=== PATIENT | female | born 1960 | race Caucasian/White ===

== ENCOUNTER 2019-03-19 15:28 | Emergency (ER) | payer OTHER ==
[2019-03-19 15:44] VITALS: BP 125/88
--- NOTE | 2019-03-19 16:07 | ER Document Report ---
HPI - HPI Time Seen by Provider: 03/19/19 16:04 Pain Level: 5 Notes: Patient is a 58-year-old female with a history of tachycardia (under care of cardiology with baseline of 110-120) who presents complaining of a gold ring stuck on her left ring finger for 2 weeks. Patient states that she has tried to get off unsuccessfully. She has noticed some redness and swelling distal to the site of the ring. Denies drug allergies. She is still able move her finger without difficultly otherwise. No numbness or tingling associated. Denies any headache, fever, URI, sore throat, chest pain, palpitations, syncope, cough, shortness of breath, wheeze, dyspnea, abdominal pain, nausea/vomiting/diarrhea, urinary retention, dysuria, hematuria, muscle paralysis/weakness, or rash. - ROS Systems Reviewed and Negative: Yes All other systems reviewed and negative Past Medical History - Social History Smoking Status: Unknown if Ever Smoked Family History: Reviewed & Not Pertinent Vertical Provider Document - CONSTITUTIONAL Agree With Documented VS: No - HR 116 Notes: PHYSICAL EXAMINATION: GENERAL: Well-appearing, well-nourished and in no acute distress. HEAD: Atraumatic, normocephalic. NECK: Normal range of motion, supple without lymphadenopathy. No midline tenderness. LUNGS: Breath sounds clear to auscultation bilaterally and equal. No wheezes rales or rhonchi. HEART: Regular rate and rhythm without murmurs, rubs, gallops. Musculoskeletal: Rt hand: there is mild swelling and erythema noted to the posterior ring finger just distal to the ring itself. The ring does appear stuck because of the noted swelling. No fluctuance or purulence noted. No ecchymosis or deformity. N/V intact distal. FROM to passive/active at the fingers. 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 No scaphoid tenderness. No other bony tenderness. Extremities: No cyanosis, clubbing, or edema b/l. Peripheral pulses 2+. Capillary refill less than 3 seconds. NEUROLOGICAL: Normal speech, normal gait. Normal sensory, motor exams otherwise unremarkable PSYCH: Normal mood, normal affect. SKIN: see above. No rash - INFECTION CONTROL TRAVEL OUTSIDE OF THE [place] IN LAST 30 DAYS: No Course - Re-evaluation Re-evalutation: 03/19/19 16:14 Patient is an afebrile, well-hydrated, 58-year-old female who presents to the ED with left fourth finger pain secondary to a stuck ring with mild cellulitis associated, no abscess or streaks/purulence. Vitals are acceptable without any significant tachycardia, tachypnea, or hypoxia. PE is otherwise unremarkable for any neurovascular compromise, obvious tendon/ligament rupture, obvious fracture/dislocation, septic joint. Patient is nontoxic-appearing. Ring removed successfully without any complications. No other labs or imaging warranted at this time based on H&P. I will send him a prescription for Bactrim. Conservative measures otherwise for symptoms. Recheck with your PCM in 3-5 days. Consider consult orthopedics. Return to the ED with any worsening/concerning symptoms otherwise as reviewed in discharge. Patient is in agreement. - Vital Signs Vital signs: Temp Pulse Resp BP Pulse Ox 99.1 F 116 H 20 125/88 H 97 03/19/19 15:40 03/19/19 16:00 03/19/19 15:40 03/19/19 15:40 03/19/19 15:40 Discharge - Discharge Clinical Impression: Finger pain, left Condition: Stable Disposition: HOME, SELF-CARE Additional Instructions: Keep the skin clean Wash with soap and water Tylenol/ibuprofen if needed Triple antibiotic ointment daily Take medication as directed Monitor for any worsening symptoms Recheck with your PCM in 3-5 days Return to the ED with any worsening symptoms and/or development of fever, headache, chest pain, palpitations, syncope, shortness of breath, trouble breathing, abdominal pain, n/v/d, abscess, purulent discharge, red streaks, worsening swelling, or other worsening symptoms that are concerning to you. Prescriptions: Cephalexin Monohydrate [Keflex 500 mg Capsule] 500 mg PO TID #30 capsule Forms: Elevated Blood Pressure Referrals: [facility] ([facility]) [Provider Group] - Follow up as needed
== END 2019-03-19 16:40 | disposition home or self-care (01) ==
LOC: ER 15:28
DX: S60.445A External constriction of left ring finger, initial encounter (principal); W49.04XA Ring or other jewelry causing external constriction, initial encounter; R00.0 Tachycardia, unspecified
CPT/HCPCS: 99283

== ENCOUNTER 2019-08-11 17:27 | Emergency (ER) | payer MEDICAID, OTHER ==
[2019-08-11] MEDS ORDERED: NORMAL SALINE 1000 ML 1,000 ML IV ONE (18:07)
[2019-08-11 18:27] LABS: ABSOLUTE EOSINOPHILS # (AUTO) 0.5 10^3/uL (0.0-0.6); ABSOLUTE LYMPHOCYTES (AUTO) 2.3 10^3/uL (0.5-4.7); ABSOLUTE MONOCYTES (AUTO) 0.4 10^3/uL (0.1-1.4); ABSOLUTE NEUT (AUTO) 4.4 10^3/uL (1.7-8.2); BASOPHILS % (AUTO) 0.4 % (0-2); EOSINOPHILS % (AUTO) 6.8 % (0-6); HEMATOCRIT 37.6 % (36.0-47.0); LYMPHOCYTES % (AUTO) 29.8 % (13-45); MEAN CORPUSCULAR HEMOGLOBIN 30.9 pg (27.0-33.4); MEAN CORPUSCULAR HGB CONC 34.6 g/dL (32.0-36.0); MEAN CORPUSCULAR VOLUME 90 fl (80-97); MONOCYTES % (AUTO) 4.9 % (3-13); PLATELET COUNT 412 10^3/uL (150-450); RED BLOOD COUNT 4.21 10^6/uL (3.72-5.28); RED CELL DISTRIBUTION WIDTH 13.5 % (11.5-14.0); SEGMENTED NEUTROPHILS % (AUTO) 58.1 % (42-78); TOTAL CELLS COUNTED % (AUTO) 100 %; WHITE BLOOD COUNT 7.6 10^3/uL (4.0-10.5)
[2019-08-11 18:41] LABS: ALBUMIN 3.6 g/dL (3.5-5.0); ALKALINE PHOSPHATASE 60 U/L (38-126); ANION GAP 8 (5-19); ASPARTATE AMINO TRANSFERASE 24 U/L (14-36); BILIRUBIN,DIRECT 0.1 mg/dL (0.0-0.4); BILIRUBIN,TOTAL 0.4 mg/dL (0.2-1.3); BLOOD UREA NITROGEN 14 mg/dL (7-20); CALCIUM 8.9 mg/dL (8.4-10.2); CARBON DIOXIDE 33 mmol/L (22-30); CHLORIDE 96 mmol/L (98-107); GLUCOSE 140 mg/dL (75-110); POTASSIUM 3.5 mmol/L (3.6-5.0); TOTAL PROTEIN 6.3 g/dL (6.3-8.2)
[2019-08-11] MEDS ORDERED: CEFTRIAXONE 1 GM/D5W RTU 1 GM/50 ML RTUPB IV ONE (18:50)
[2019-08-11] MEDS ORDERED: KETOROLAC TROMETHAMINE INJ/PF 30 MG/1 ML SDV IV ONE (18:51)
--- NOTE | 2019-08-11 18:52 | ER Document Report ---
ED ENT - General Chief Complaint: Ear Pain Stated Complaint: EAR PAIN/HEADACHE/DIZZY/KNEE PAIN Time Seen by Provider: 08/11/19 18:08 Primary Care Provider: SHORTY PANTOJA MD [Primary Care Provider] - Follow up as needed Mode of Arrival: Ambulatory Information source: Patient Notes: This 59-year-old woman presents to the emergency department with a complaint of right ear pain. States that her ear began bothering her approximately 3 weeks ago. Symptoms intensified over the past week and she went to an outpatient clinic where she was given amoxicillin and told to take ibuprofen. Pain has continued and she states that she is no better after taking the medications as prescribed. She denies fever, nausea vomiting or associated dizziness. Patient was noted to have a low blood pressure in triage and an IV of normal saline was begun. Patient states that she runs a low blood pressure normally. TRAVEL OUTSIDE OF THE [place] IN LAST 30 DAYS: No - Related Data Allergies/Adverse Reactions: No Known Allergies Allergy (Verified 03/19/19 15:38) Past Medical History - General Information source: Patient - Social History Smoking Status: Unknown if Ever Smoked Family History: Reviewed & Not Pertinent Patient has suicidal ideation: No Patient has homicidal ideation: No Renal/ Medical History: Denies: Hx Peritoneal Dialysis Review of Systems - Review of Systems Notes: Constitutional: Negative for fever. HENT: + Right ear pain Eyes: Negative for visual changes. Cardiovascular: Negative for chest pain. Respiratory: Negative for shortness of breath. Gastrointestinal: Negative for abdominal pain, vomiting or diarrhea. Genitourinary: Negative for dysuria. Musculoskeletal: Negative for back pain. Skin: Negative for rash. Neurological: Negative for headaches, weakness or numbness. 10 point ROS negative except as marked above and in HPI. Physical Exam - Vital signs Vitals: Temp Pulse Resp BP Pulse Ox 97.6 F 64 20 85/64 L 97 08/11/19 17:42 08/11/19 17:42 08/11/19 17:42 08/11/19 17:42 08/11/19 17:42 - Notes Notes: PHYSICAL EXAMINATION: Physical Exam: General: Well-nourished well-developed in no acute distress HEENT: NC/AT, pupils equal round and reactive to light, MM moist,nares clear, + right TM with erythema, + air-fluid level, good landmarks, left TM mild erythema Neck: supple, no adenopathy, no masses. Lungs: clear, no wheezing, no rales no rhonchi CVS: Regular rate and rhythm no murmur gallop or rub Abdomen: Soft active nontender, no masses, no hepatosplenomegaly Ext: No edema clubbing or cyanosis. Neuro: Alert and responsive, moving all 4 extremities on command, cranial nerves intact. Skin: Intact no open lesions, no rash PSYCH: Normal mood, normal affect. Course - Re-evaluation Re-evalutation: 08/11/19 20:27 Patient was given ceftriaxone and Toradol in the emergency department. Pr escription is given for cefdinir and Toradol tablets. I have asked the patient to use a warm compress over the side of her face and ear for pain control. And she can follow-up with her primary care doctor as needed. - Vital Signs Vital signs: Temp Pulse Resp BP Pulse Ox 97.6 F 64 12 94/62 L 95 08/11/19 17:42 08/11/19 17:42 08/11/19 19:01 08/11/19 19:01 08/11/19 19:01 - Laboratory Result Diagrams: 08/11/19 18:13 08/11/19 18:13 Laboratory results interpreted by me: 08/11/19 08/11/19 18:13 18:13 Eos % (Auto) 6.8 H Sodium 136.9 L Potassium 3.5 L Chloride 96 L Carbon Dioxide 33 H Creatinine 1.47 H Est GFR ( Amer) 44 L Est GFR (MDRD) Non-Af 36 L Glucose 140 H Discharge - Discharge Clinical Impression: Right ear pain Right otitis media Qualifiers: Otitis media type: unspecified Qualified Code(s): H66.91 - Otitis media, unspecified, right ear Condition: Good Disposition: HOME, SELF-CARE Instructions: Otitis Media ([facility]) Additional Instructions: You are diagnosed with a right ear infection and pain secondary to the infection in the emergency department tonight, you were given IV antibiotics and IV medication for pain and prescriptions are given for oral antibiotics and oral medication for pain. 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 Prescriptions: Ketorolac Tromethamine [Toradol 10 mg Tablet] 10 mg PO Q6HP PRN #14 tablet PRN Reason: Cefdinir 300 mg PO BID #20 capsule Referrals: SHORTY PANTOJA MD [Primary Care Provider] - Follow up as needed MARY FOUNTAIN MD [ACTIVE STAFF] - Follow up as needed
[2019-08-11 21:08] VITALS: BP 116/60
== END 2019-08-11 21:08 | disposition home or self-care (01) ==
LOC: ER 17:27
DX: H66.91 Otitis media, unspecified, right ear (principal); H92.01 Otalgia, right ear; R51 Headache; R42 Dizziness and giddiness
CPT/HCPCS: 99283; 96361; 96375; 96365; 36415; 85025; 80053; J1885; J7030; J0696

== ENCOUNTER 2020-02-19 20:12 | Emergency (ER) | payer MEDICAID ==
[2020-02-19] MEDS ORDERED: ACETAMINOPHEN 325 MG TABLET PO ONE (20:45)
--- NOTE | 2020-02-19 20:48 | ER Document Report ---
ED Medical Screen (RME) - General Chief Complaint: Chest Tightness Stated Complaint: CHEST PAIN, HEADACHE, HIGH BLOOD PRESSURE Time Seen by Provider: 02/19/20 20:40 Primary Care Provider: SHORTY PANTOJA MD [Primary Care Provider] - Follow up as needed Mode of Arrival: Medic Information source: Patient Notes: HPI; [age]-year-old female presents emergency room complaining of chest tightness and a headache that started earlier today. States she had a new appointment to establish with a primary care physician advised in today her blood pressure in the office was elevated to 170/130. States they want to send her to the hospital at that time she refused. She was discharged home on lisinopril but she states she tripped tonight checked her blood pressure at 7 PM it was 200/112 patient states at that point she called EMS. Still complaining of a headache at 4-5. Chest tightness is 2 out of 5. Complains of nausea along with the persistent headache. Denies worse headache of her life. No sudden thunderclap. PE: Alert and oriented x3. Mild distress noted. Lungs: Clear to auscultation without rales, rhonchi, wheezes. Heart: Regular rate and rhythm without murmurs, rubs, gallops. I have greeted and performed a rapid initial assessment of this patient. A comprehensive ED assessment and evaluation of the patient, analysis of test results and completion of the medical decision making process will be conducted by additional ED providers. I have specifically instructed the patient or family members with the patient to immediately return to any nursing staff should anything change in the patient's condition or with their chief complaint. TRAVEL OUTSIDE OF THE [place] IN LAST 30 DAYS: No - Related Data Allergies/Adverse Reactions: No Known Allergies Allergy (Verified 03/19/19 15:38) Past Medical History Renal/ Medical History: Denies: Hx Peritoneal Dialysis Physical Exam - Vital signs Vitals: Temp Pulse Resp BP Pulse Ox 98.8 F 108 H 20 142/97 H 98 02/19/20 20:32 02/19/20 20:32 02/19/20 20:32 02/19/20 20:32 02/19/20 20:32 Course - Vital Signs Vital signs: Temp Pulse Resp BP Pulse Ox 98.8 F 108 H 20 142/97 H 98 02/19/20 20:32 02/19/20 20:32 02/19/20 20:32 02/19/20 20:32 02/19/20 20:32 Doctor's Discharge - Discharge Referrals: SHORTY PANTOJA MD [Primary Care Provider] - Follow up as needed
[2020-02-19 22:14] LABS: ABSOLUTE BASOPHILS # (AUTO) 0.1 10^3/uL (0.0-0.2); ABSOLUTE EOSINOPHILS # (AUTO) 0.4 10^3/uL (0.0-0.6); ABSOLUTE LYMPHOCYTES (AUTO) 4.4 10^3/uL (0.5-4.7); ABSOLUTE MONOCYTES (AUTO) 0.6 10^3/uL (0.1-1.4); ABSOLUTE NEUT (AUTO) 4.2 10^3/uL (1.7-8.2); BASOPHILS % (AUTO) 1.5 % (0-2); EOSINOPHILS % (AUTO) 3.9 % (0-6); HEMATOCRIT 41.2 % (36.0-47.0); HEMOGLOBIN 13.6 g/dL (12.0-15.5); LYMPHOCYTES % (AUTO) 45.5 % (13-45); MEAN CORPUSCULAR HEMOGLOBIN 31.3 pg (27.0-33.4); MEAN CORPUSCULAR VOLUME 95 fl (80-97); PLATELET COUNT 441 10^3/uL (150-450); RED BLOOD COUNT 4.35 10^6/uL (3.72-5.28); RED CELL DISTRIBUTION WIDTH 13.6 % (11.5-14.0); SEGMENTED NEUTROPHILS % (AUTO) 43.1 % (42-78); TOTAL CELLS COUNTED % (AUTO) 100 %; WHITE BLOOD COUNT 9.8 10^3/uL (4.0-10.5)
[2020-02-19 22:28] LABS: ALBUMIN 4.2 g/dL (3.5-5.0); ALKALINE PHOSPHATASE 82 U/L (38-126); ANION GAP 9 (5-19); ASPARTATE AMINO TRANSFERASE 25 U/L (14-36); BILIRUBIN,DIRECT 0.1 mg/dL (0.0-0.4); BILIRUBIN,TOTAL 0.3 mg/dL (0.2-1.3); BLOOD UREA NITROGEN 14 mg/dL (7-20); CALCIUM 9.3 mg/dL (8.4-10.2); CARBON DIOXIDE 31 mmol/L (22-30); CHLORIDE 102 mmol/L (98-107); CREATINE KINASE 128 U/L (30-135); GLUCOSE 91 mg/dL (75-110); POTASSIUM 4.4 mmol/L (3.6-5.0); TOTAL PROTEIN 7.3 g/dL (6.3-8.2)
[2020-02-19 22:38] LABS: CREATINE KINASE MB 0.52 ng/mL (<4.55)
[2020-02-19 22:41] LABS: TROPONIN I < 0.012 ng/mL
[2020-02-19] MEDS ORDERED: DIPHENHYDRAMINE HCL 50 MG/ML VIAL IV ONE (23:55)
[2020-02-19] MEDS ORDERED: PROCHLORPERAZINE EDISYLATE INJ 10 MG/2 ML VIAL IV ONE (23:55)
--- NOTE | 2020-02-20 00:34 | RADIOLOGY REPORT (SQ) ---
CLINICAL HISTORY: headache COMPARISON: None. TECHNIQUE: CT HEAD WITHOUT IV CONTRAST on 02/19/2020 11:55 PM CDT This exam was performed according to our departmental dose-optimization program, which includes automated exposure control, adjustment of the mA and/or kV according to patient size and/or use of iterative reconstruction technique. FINDINGS: There is no acute hemorrhage, mass effect or midline shift. Burris-white differentiation is preserved. There is no hydrocephalus. There is mild bifrontal cerebral atrophy. The calvarium is intact. Orbits and globes are unremarkable. The paranasal sinuses are clear. Mastoid air cells are clear. IMPRESSION: No acute intracranial findings.
[2020-02-20] MEDS ORDERED: KETOROLAC TROMETHAMINE INJ/PF 30 MG/1 ML SDV IV ONE (00:55)
[2020-02-20] MEDS ORDERED: NORMAL SALINE 500 ML IV ONE (00:58)
--- NOTE | 2020-02-20 00:59 | ER Document Report ---
ED General - General Chief Complaint: Chest Tightness Stated Complaint: CHEST PAIN, HEADACHE, HIGH BLOOD PRESSURE Time Seen by Provider: 02/19/20 20:40 Primary Care Provider: SHORTY PANTOJA MD [ACTIVE STAFF] - Follow up in 3-5 days Mode of Arrival: Medic Notes: Patient is a 59-year-old female who comes in complaining of a headache, neck pain, upper chest pain that is worse with movement. Denies fever, cough, congestion. No trauma. No anticoagulation. Patient apparently started on frederic nopril today for high blood pressure which she does not think is in any way related to the headache that she is having tonight. States that she has had headaches had similar areas before but worse tonight. Received Tylenol at triage without much relief. No previous imaging of her head. TRAVEL OUTSIDE OF THE [place] IN LAST 30 DAYS: No - HPI Onset: This afternoon Onset/Duration: Gradual Quality of pain: Dull Severity: Moderate Pain Level: 3 Associated symptoms: None - Related Data Allergies/Adverse Reactions: No Known Allergies Allergy (Verified 03/19/19 15:38) Past Medical History - General Information source: Patient - Social History Smoking Status: Never Smoker Family History: Reviewed & Not Pertinent Patient has homicidal ideation: No Renal/ Medical History: Denies: Hx Peritoneal Dialysis Review of Systems - Review of Systems Constitutional: No symptoms reported EENT: See HPI Cardiovascular: See HPI Respiratory: No symptoms reported Gastrointestinal: No symptoms reported Genitourinary: No symptoms reported Female Genitourinary: No symptoms reported Musculoskeletal: No symptoms reported Skin: No symptoms reported Hematologic/Lymphatic: No symptoms reported Neurological/Psychological: No symptoms reported Physical Exam - Vital signs Vitals: Temp Pulse Resp BP Pulse Ox 98.8 F 108 H 20 142/97 H 98 02/19/20 20:32 02/19/20 20:32 02/19/20 20:32 02/19/20 20:32 02/19/20 20:32 Interpretation: Hypertensive, Tachycardic - General General appearance: Appears well, Alert In distress: None - Appears uncomfortable - HEENT Head: Normocephalic, Atraumatic Eyes: Normal Pupils: PERRL - Respiratory Respiratory status: No respiratory distress Chest status: Tender - Bilateral upper chest wall, reproducible Breath sounds: Normal Chest palpation: Normal - Cardiovascular Rhythm: Regular Heart sounds: Normal auscultation Murmur: No - Abdominal Inspection: Normal Distension: No distension Bowel sounds: Normal Tenderness: Nontender Organomegaly: No organomegaly - Back Back: Normal, Nontender - Extremities General upper extremity: Normal inspection, Nontender, Normal color, Normal ROM, Normal temperature General lower extremity: Normal inspection, Nontender, Normal color, Normal ROM, Normal temperature, Normal weight bearing. No: [place]'s sign - Neurological Neuro grossly intact: Yes Cognition: Normal Orientation: AAOx4 Ary Coma Scale Eye Opening: Spontaneous Austin Coma Scale Verbal: Oriented [place] Coma Scale Motor: Obeys Commands Austin Coma Scale Total: 15 Speech: Normal Motor strength normal: LUE, RUE, LLE, RLE Sensory: Normal - Psychological Associated symptoms: Normal affect, Normal mood - Skin Skin Temperature: Warm Skin Moisture: Dry Skin Color: Normal Course - Re-evaluation Re-evalutation: 02/20/20 00:58 No acute findings on CT head. Patient has received Benadryl and Compazine with minimal relief in her headache. Toradol and fluids ordered. EKG and chest x- ray benign. Troponin negative x2. 02/20/20 02:00 Patient feeling better but still with some headache and nausea. Toradol and Zofran ordered. 02/20/20 02:44 Feels better, ready to go home. Taking po. Follow-up with PMD. Return if any worsening or concerning symptoms. Understands and agrees with plan. Stable for discharge. - Vital Signs Vital signs: Temp Pulse Resp BP Pulse Ox 98.8 F 108 H 14 161/96 H 98 02/19/20 20:32 02/19/20 20:32 02/20/20 02:48 02/20/20 02:01 02/20/20 02:48 - Laboratory Result Diagrams: 02/19/20 21:25 02/19/20 21:25 Laboratory results interpreted by me: 02/19/20 02/19/20 21:25 21:25 Lymph % (Auto) 45.5 H Carbon Dioxide 31 H - Diagnostic Test Radiology reviewed: Reports reviewed - EKG Interpretation by Me EKG shows normal: Sinus rhythm Rate: Tachycardia Additional EKG results interpreted by me: No acute ST changes Discharge - Discharge Clinical Impression: Atypical chest pain Headache Qualifiers: Headache type: unspecified Headache chronicity pattern: acute headache Intractability: not intractable Qualified Code(s): R51 - Headache Condition: Stable Disposition: HOME, SELF-CARE Instructions: Chest Pain of Unclear Cause ([facility]), Headache ([facility]) Prescriptions: Ondansetron [Zofran Odt 4 mg Tablet] 1 tab PO Q6HP PRN #15 tab.rapdis PRN Reason: For Nausea/Vomiting Referrals: SHORTY PANTOJA MD [ACTIVE STAFF] - Follow up in 3-5 days
[2020-02-20] MEDS ORDERED: DIAZEPAM 2 MG TABLET PO ONE (01:47)
[2020-02-20] MEDS ORDERED: ONDANSETRON HCL INJ/PF 4 MG/2 ML SDV IV ONE (01:47)
[2020-02-20] MEDS ORDERED: ONDANSETRON ODT 4 MG TAB (6 TAB/ER DISP) PO PRN (02:44)
[2020-02-20 02:51] VITALS: BP 161/96
--- NOTE | 2020-02-20 04:38 | RADIOLOGY REPORT (SQ) ---
PA and lateral chest radiograph: 02/20/2020 3:35 AM CDT Comparison: None available Indication: 59-year old patient with chest pain. Findings: The cardiomediastinal silhouette is normal in size.No pneumothorax is seen. No acute airspace opacities are seen. No discrete pleural effusion is apparent. Impression: No acute airspace opacities are seen.
--- NOTE | 2020-02-20 08:34 | EKG REPORT ---
SEVERITY:- BORDERLINE ECG - SINUS TACHYCARDIA BORDERLINE T ABNORMALITIES, ANTERIOR LEADS : Confirmed by: Jason Osuna 20-Feb-2020 08:33:32
== END 2020-02-20 03:02 | disposition home or self-care (01) ==
LOC: ER 20:12
DX: R07.89 Other chest pain (principal); R51 Headache; R07.9 Chest pain, unspecified; M54.2 Cervicalgia; I10 Essential (primary) hypertension; Z79.899 Other long term (current) drug therapy
CPT/HCPCS: 93005; 99285; 96361; 96374; 96375; 36415; 82553; 82550; 85025; 80053; 84484; 71046; 70450; 93010; J3490 ×2; J1200; J1885; J0780; J2405; J7040

== ENCOUNTER → 2020-04-14 | Outpatient (CLI) | payer MEDICAID ==
[~2020-04-14] MED LIST: REGADENOSON INJ 0.4 MG/5 ML DISP.SYRIN IV ONE
--- NOTE | 2020-04-15 08:44 | DRAGON STRESS TEST REPORT ---
Pharmacological nuclear stress test Date: April 15, 2020 Referring physician: Performing physician: Indication: Chest pain Clinical history 59-year-old lady presented with chest pain and palpitations. We decided to proceed with pharmacological nuclear stress test. Risk factor for coronary artery disease a systemic hypertension. Procedure The patient presented to the stress lab. Initially rest images were obtained according to standard protocol after the injection of 16.39 millicurie technetium 99m sestamibi. Subsequently the patient underwent pharmacological stress utilizing 0.4 mg of regadenoson intravenously. The patient's EKG and vital signs were monitored throughout the procedure. Subsequently patient was injected with 45 millicuries of technetium 99m sestamibi. After a period of rest, stress images were obtained according to standard protocol. EKG showed sinus rhythm at beats per minute. The patient's stress EKG did not show any evidence for myocardial ischemia. There were no arrhythmias observed. Raw as well as processed rest and stress images were reviewed. There was mild to moderate gut uptake which did not interfere with the study. The rest and stress images show uniform uptake of radioactive isotope without any fixed or reversible defects to suggest myocardial ischemia or myocardial infarction. There is normal contractility post-stress. The calculated ejection fraction is 69%. The TID ratio is 1.19. Conclusion The stress EKG is negative for myocardial ischemia There is no scintigraphic evidence of myocardial infarction or ischemia provoked by pharmacological stress. There is normal contractility post-stress. The gated left ventricular ejection fraction is 69 %. The patient will be given an appointment to discuss these results. [facility]
--- NOTE | 2020-04-15 21:03 | XCELERA REPORT ---
[address] [address] Transthoracic Echocardiogram Report Name: LES COLBERT Age: 59 yrs Gender: Female : 1960 Patient Status: Outpatient Patient Location: [facility] Study Date: 04/14/2020 10:49 AM History: Palpitations Height: 63 in Weight: 228 lb BSA: 2.0 m2 Procedure: A complete two-dimensional transthoracic echocardiogram was performed (2D, M-mode, spectral and color flow Doppler). The study was technically difficult with many images being suboptimal in quality. Reason For Study: PALPITATION Previous Evaluation: No previous studies were available. History: Palpitations. Ordering Physician: LALA GUZMÁN Performed By: Fan Shepherd Interpretation Summary Left ventricular systolic function is normal. The Ejection Fraction estimate is 60-65% The right ventricular systolic function is normal. There is no mitral regurgitation noted. There is a trace amount of tricuspid regurgitation There is no pericardial effusion. MMode/2D Measurements & Calculations RVDd: 2.6 cm LVIDd: 4.9 cm FS: 37.6 % Ao root diam: 2.8 cm IVSd: 0.83 cm LVIDs: 3.1 cm EDV(Teich): 115.4 ml Ao root area: 6.1 cm2 LVPWd: 0.73 cm ESV(Teich): 37.5 ml LA dimension: 3.2 cm EF(Teich): 67.5 % Doppler Measurements & Calculations MV E max jessenia: MV P1/2t max jessenia: PA V2 max: TR max jessenia: 69.4 cm/sec 67.1 cm/sec 84.9 cm/sec 258.3 cm/sec MV A max jessenia: MV P1/2t: 101.2 msec PA max PG: TR max P.1 cm/sec MVA(P1/2t): 2.2 cm2 2.9 mmHg 26.7 mmHg MV E/A: 1.2 MV dec slope: 194.1 cm/sec2 MV dec time: 0.21 sec MV P1/2t-pr_phl: 101.2 msec Left Ventricle The left ventricle is normal in size. There is normal left ventricular wall thickness. Left ventricular systolic function is normal. The Ejection Fraction estimate is 60-65%. Doppler measurements suggest pseudonormalized left ventricular relaxation, which is associated with grade II/IV or mild to moderate diastolic dysfunction. Regional wall motion abnormalities cannot be excluded due to limited visualization. Right Ventricle The right ventricle is not well visualized secondary to technical limitations. The right ventricular systolic function is normal. Atria The right atrium is normal. The left atrial size is normal. Mitral Valve The mitral valve is grossly normal. There is no mitral valve stenosis. There is no mitral regurgitation noted. Aortic Valve The aortic valve is normal in structure and function. The aortic valve is trileaflet. The aortic valve opens well. Doppler interrogation of aortic valve inadequate. Tricuspid Valve The tricuspid valve is not well visualized, but is grossly normal. There is a trace amount of tricuspid regurgitation. Tricuspid regurgitation jet envelope not well defined to measure RV systolic pressure accurately. Pulmonic Valve The pulmonic valve is not well visualized. Great Vessels The aortic root is normal size. The inferior vena cava appeared normal and decreased > 50% with respiration (RAP 5-10 mmHg). Effusions There is no pericardial effusion. : LALA GUZMÁN Anil
== END ==
LOC: RAD 08:33
PROVIDERS: ATTEND Internal Medicine
DX: R07.9 Chest pain, unspecified (principal); R00.2 Palpitations; I25.9 Chronic ischemic heart disease, unspecified
CPT/HCPCS: 93306; 93017; 78452; A9500; J2785; Q9969

== ENCOUNTER 2020-06-06 15:32 | Emergency (ER) | payer MEDICAID ==
--- NOTE | 2020-06-06 15:50 | ER Document Report ---
ED Medical Screen (RME) - General Chief Complaint: Arm Pain Stated Complaint: ARM PAIN Time Seen by Provider: 06/06/20 15:45 Primary Care Provider: LALA GUZMÁN MD [Primary Care Provider] - Follow up as needed Mode of Arrival: Ambulatory Information source: Patient Notes: 59-year-old female presents to ED for complaint of severe pain to the right upper arm. She states she has not injured it she has not pulled anything up she has not done anything to make this into the right upper arm. She states it is hard firm and feels like it is just a constant throb in the upper arm. There is no obvious injuries to the area. She states she does have a history of melanoma 40 years ago but has not had it since then. She does not have a history of DVTs, she has not been on any long trips, she does not smoke, does not take any hormones, and she does not know any reason for this arm to hurt. She is alert oriented respirations regular nonlabored speaking in full sentences. She states that now the pain is all the way down the right arm even to her fingers. I have greeted and performed a rapid initial assessment of this patient. A comprehensive ED assessment and evaluation of the patient, analysis of test results and completion of medical decision making process will be conducted by an additional ED providers. TRAVEL OUTSIDE OF THE [place] IN LAST 30 DAYS: No - Related Data Allergies/Adverse Reactions: No Known Allergies Allergy (Verified 03/19/19 15:38) Past Medical History Renal/ Medical History: Denies: Hx Peritoneal Dialysis Physical Exam - Vital signs Vitals: Temp Pulse Resp BP Pulse Ox 98.3 F 93 16 146/84 H 100 06/06/20 15:37 06/06/20 15:37 06/06/20 15:37 06/06/20 15:37 06/06/20 15:37 Course - Vital Signs Vital signs: Temp Pulse Resp BP Pulse Ox 98.3 F 93 16 146/84 H 100 06/06/20 15:37 06/06/20 15:37 06/06/20 15:37 06/06/20 15:37 06/06/20 15:37 Doctor's Discharge - Discharge Referrals: LALA GUZMÁN MD [Primary Care Provider] - Follow up as needed
--- NOTE | 2020-06-06 16:39 | RADIOLOGY REPORT (SQ) ---
EXAM DESCRIPTION: U/S EXTREMITY NONVASCULAR COMP IMAGES COMPLETED DATE/TIME: 06/06/2020 4:23 pm REASON FOR STUDY: right arm pain firmness to upper arm COMPARISON: None. TECHNIQUE: Selected dynamic and static grayscale images of the area of pain in the right upper extre mity were obtained. LIMITATIONS: None. FINDINGS: The patient has a history of a skin graft. There is no abnormality in the area of pain. IMPRESSION: No abnormality in the area of pain. TECHNICAL DOCUMENTATION: JOB ID: [id number] 2010 [employer]- All Rights Reserved Reading location - IP/workstation name: [email or web address]
[2020-06-06 17:19] LABS: ABSOLUTE BASOPHILS # (AUTO) 0.1 10^3/uL (0.0-0.2); ABSOLUTE EOSINOPHILS # (AUTO) 0.3 10^3/uL (0.0-0.6); ABSOLUTE LYMPHOCYTES (AUTO) 3.3 10^3/uL (0.5-4.7); ABSOLUTE MONOCYTES (AUTO) 0.5 10^3/uL (0.1-1.4); ABSOLUTE NEUT (AUTO) 5.4 10^3/uL (1.7-8.2); BASOPHILS % (AUTO) 0.8 % (0-2); EOSINOPHILS % (AUTO) 3.1 % (0-6); HEMATOCRIT 32.6 % (36.0-47.0); HEMOGLOBIN 11.3 g/dL (12.0-15.5); LYMPHOCYTES % (AUTO) 34.5 % (13-45); MEAN CORPUSCULAR HEMOGLOBIN 32.1 pg (27.0-33.4); MEAN CORPUSCULAR HGB CONC 34.6 g/dL (32.0-36.0); MEAN CORPUSCULAR VOLUME 93 fl (80-97); MONOCYTES % (AUTO) 5.6 % (3-13); PLATELET COUNT 339 10^3/uL (150-450); RED BLOOD COUNT 3.52 10^6/uL (3.72-5.28); TOTAL CELLS COUNTED % (AUTO) 100 %; WHITE BLOOD COUNT 9.6 10^3/uL (4.0-10.5)
[2020-06-06 17:40] LABS: ALBUMIN 4.4 g/dL (3.5-5.0); ALKALINE PHOSPHATASE 88 U/L (38-126); ANION GAP 8 (5-19); BILIRUBIN,DIRECT 0.2 mg/dL (0.0-0.4); BILIRUBIN,TOTAL 0.4 mg/dL (0.2-1.3); BLOOD UREA NITROGEN 15 mg/dL (7-20); CALCIUM 9.6 mg/dL (8.4-10.2); CARBON DIOXIDE 29 mmol/L (22-30); CHLORIDE 103 mmol/L (98-107); GLUCOSE 102 mg/dL (75-110); POTASSIUM 4.7 mmol/L (3.6-5.0); TOTAL PROTEIN 7.4 g/dL (6.3-8.2)
[2020-06-06 17:41] LABS: ASPARTATE AMINO TRANSFERASE 23 U/L (14-36)
--- NOTE | 2020-06-06 17:49 | RADIOLOGY REPORT (SQ) ---
EXAM DESCRIPTION: VENOUS UNILATERAL UPPER IMAGES COMPLETED DATE/TIME: 06/06/2020 5:15 pm REASON FOR STUDY: Pain entire left arm throbbing history melanoma COMPARISON: None. TECHNIQUE: Dynamic and static johnston scale and color images acquired of the right arm venous system. S elected spectral images acquired with additional compression and augmentation maneuvers. The contrala teral subclavian vein and internal jugular vein were also imaged. Images stored on PACS. LIMITATIONS: None. FINDINGS: INTERNAL JUGULAR VEIN: Normal phasicity, compression, augmentation. No visualized echogeni c material on johnston scale. No defects on color images. Comparison opposite side normal. SUBCLAVIAN VEIN: Normal compression, augmentation. No visualized echogenic material on johnston scale. No defects on color images. AXILLARY VEIN: Normal compression, augmentation. No visualized echogenic material on johnston scale. No d efects on color images. BRACHIAL VEIN: Normal compression, augmentation. No visualized echogenic material on johnston scale. No d efects on color images. BASILIC VEIN: Normal compression, augmentation. No visualized echogenic material on johnston scale. No de fects on color images. CEPHALIC VEIN: Normal compression, augmentation. No visualized echogenic material on johnston scale. No d efects on color images. OTHER: No other significant finding. CONTRALATERAL SUBCLAVIAN VEIN AND INTERNAL JUGULAR VEIN: Normal phasicity, compression and augmentation. No visualized echogenic material on johnston scale. No de fects on color images. IMPRESSION: NO EVIDENCE DVT OR SVT IN THE RIGHT ARM. TECHNICAL DOCUMENTATION: JOB ID: [id number] 2010 [employer]- All Rights Reserved Reading location - IP/workstation name: [email or web address]
[2020-06-06] MEDS ORDERED: HYDROCODONE/ACETAMINOPHEN 5-325 MG TABLET PO ONE (18:21)
--- NOTE | 2020-06-06 18:24 | ER Document Report ---
ED General - General Chief Complaint: Arm Pain Stated Complaint: ARM PAIN Time Seen by Provider: 06/06/20 15:45 Primary Care Provider: LALA GUZMÁN MD [ACTIVE STAFF] - Follow up as needed Mode of Arrival: Ambulatory Notes: HPI: 59-year-old female with a history of melanoma to the right arm with resection when she was younger who presents today with some right arm/humerus pain starting around a week ago. She does state it hurts when she lifts it up. She denies any trauma. Denies any swelling, weakness, numbness, discoloration. She denies any radiation to the chest. She denies any shortness of breath or cough. No lower extremity or left upper extremity symptoms. ROS: See HPI All other review of systems reviewed and otherwise negative Reviewed vital signs and nursing note as charted by RN. PHYSICAL EXAM: CONSTITUTIONAL: Alert and oriented and responds appropriately to questions. Well-appearing; well-nourished HEAD: Normocephalic; atraumatic EYES: PERRL; Conjunctivae clear, sclerae non-icteric NECK: Supple without meningismus; non-tender to palpation along the midline spine; no lymphadenopathy. Some right paraspinal muscular tenderness with no swelling or erythema CARD: Regular rate and rhythm; no murmurs; symmetric distal pulses RESP: Normal chest excursion without splinting or tachypnea; breath sounds clear and equal bilaterally; no wheezes, no rhonchi, no rales ABD/GI: Normal bowel sounds; non-distended; soft, non-tender; no palpable organomegaly or masses BACK: The back appears normal and is non-tender to palpation EXT: Patient has old surgical scar from the melanoma to the proximal humerus. There is no swelling, erythema, induration, or edema. Neurovascular intact with excellent nutrition teacher strength, pulses, and capillary refill SKIN: No acute lesions noted NEURO: CN 2-12 intact; 5/5 bilateral upper and lower extremity strength with sensation intact to light touch PSYCH: The patient's mood and manner are appropriate. Grooming and personal hygiene are appropriate. TRAVEL OUTSIDE OF THE [place] IN LAST 30 DAYS: No - Related Data Allergies/Adverse Reactions: No Known Allergies Allergy (Verified 03/19/19 15:38) Past Medical History - General Information source: Patient - Social History Smoking Status: Never Smoker Frequency of alcohol use: None Drug Abuse: None Family History: Reviewed & Not Pertinent Patient has homicidal ideation: No - Past Medical History Cardiac Medical History: Reports: Hx Hypercholesterolemia, Hx Hypertension Renal/ Medical History: Denies: Hx Peritoneal Dialysis Psychiatric Medical History: Reports: Hx Depression - anxiety Past Surgical History: Reports: Hx Oral Surgery - wisdom teeth, Hx Tonsillectomy Physical Exam - Vital signs Vitals: Temp Pulse Resp BP Pulse Ox 98.3 F 93 16 146/84 H 100 06/06/20 15:37 06/06/20 15:37 06/06/20 15:37 06/06/20 15:37 06/06/20 15:37 Course - Re-evaluation Re-evalutation: Given the above history and physical, the patient had an ultrasound and a Doppler study ordered in triage with basic laboratory values. Patient has no history of diabetes. Patient has had absolutely no chest pain or shortness of breath. Patient's pain is reproducible with some palpation and movement mostly of forward flexion of the arm. 06/06/20 18:22 Labs and imaging as recorded. I will also order a portable x-ray of the right humerus. I will provide some pain medications. Patient is not a diabetic. If the x-ray is unremarkable, with no change in extremity exam, I will place the patient in a sling and provide steroids, pain medications, and anti-inflammatory medications with strict return precautions and orthopedic follow-up. 06/06/20 19:14 Labs and humerus x-ray as recorded. No change in exam. EKG shows heart of 76, normal sinus rhythm, normal axis, no obvious ST elevation or depression. Inverted T wave in V2. Given the above history and physical, nondiabetic, I will provide a course of ibuprofen, steroids, a sling, and orthopedic referral and follow-up. - Vital Signs Vital signs: Temp Pulse Resp BP Pulse Ox 98.3 F 93 16 146/84 H 100 06/06/20 15:37 06/06/20 15:37 06/06/20 15:37 06/06/20 15:37 06/06/20 15:37 - Laboratory Result Diagrams: 06/06/20 17:05 06/06/20 17:05 Laboratory results interpreted by me: 06/06/20 17:05 RBC 3.52 L Hgb 11.3 L Hct 32.6 L Discharge - Discharge Clinical Impression: Right arm pain Condition: Good Disposition: HOME, SELF-CARE Additional Instructions: Come back immediately for any increased pain, change in location or quality of pain, chest pain, Shortness of breath, arm swelling, weakness, or any other acute problems. Please make sure that you follow-up with the primary care physician for reassessment as we have discussed as well as the orthopedic that we have referred you to. In addition to the steroids please take ibuprofen, 400 mg every 6 hours for the next 5 days. Prescriptions: Prednisone [Deltasone 20 mg Tablet] 60 mg PO DAILY #12 tablet Hydrocodone/Acetaminophen [Randolph 5-325 mg Tablet] 1 tab PO Q8 #10 tablet Referrals: LALA GUZMÁN MD [ACTIVE STAFF] - Follow up as needed AIDA FLORES MD [ASSOCIATE] - Follow up as needed
--- NOTE | 2020-06-06 18:57 | RADIOLOGY REPORT (SQ) ---
EXAM DESCRIPTION: HUMERUS RIGHT IMAGES COMPLETED DATE/TIME: 06/06/2020 6:39 pm REASON FOR STUDY: 21; pain COMPARISON: None. NUMBER OF VIEWS: Two views. TECHNIQUE: Two radiographic images were acquired of the right humerus to include elbow and shoulder in at least one projection. LIMITATIONS: None. FINDINGS: MINERALIZATION: Normal. BONES: No acute fracture or dislocation. No worrisome bone lesions. SOFT TISSUES: No obvious swelling or foreign body. OTHER: No other significant finding. IMPRESSION: NEGATIVE STUDY OF THE RIGHT HUMERUS. NO RADIOGRAPHIC EVIDENCE OF ACUTE INJURY. TECHNICAL DOCUMENTATION: JOB ID: [id number] 2010 [employer]- All Rights Reserved Reading location - IP/workstation name: [email or web address]
[2020-06-06 19:14] LABS: APPEARANCE,URINE CLEAR; BILIRUBIN,URINE NEGATIVE (NEGATIVE); COLOR,URINE YELLOW; GLUCOSE, URINE NEGATIVE (NEGATIVE); KETONES,URINE NEGATIVE (NEGATIVE); PROTEIN,URINE 30 mg/dL (NEGATIVE); URINE SPECIFIC GRAVITY 1.023; UROBILINOGEN,URINE NEGATIVE mg/dL (<2.0)
[2020-06-06 20:03] VITALS: BP 134/82
--- NOTE | 2020-06-07 07:22 | EKG REPORT ---
SEVERITY:- NORMAL ECG - SINUS RHYTHM : Confirmed by: Manny Rowland MD 07-Jun-2020 07:21:19
== END 2020-06-06 19:58 | disposition home or self-care (01) ==
LOC: ER 15:32
DX: M89.8X2 Other specified disorders of bone, upper arm (principal); I10 Essential (primary) hypertension; Z85.820 Personal history of malignant melanoma of skin; Z98.890 Other specified postprocedural states
CPT/HCPCS: 36415; 76881; 80053; 81001; 85025; 93005; 93010; 93971; 99285

== ENCOUNTER 2020-06-11 20:26 | Emergency (ER) | payer MEDICAID ==
[2020-06-11] MEDS: NORMAL SALINE 1000 ML 1,000 ML IV PRN ×2 (20:45→22:03)
--- NOTE | 2020-06-11 20:59 | ER Document Report ---
ED General - General Chief Complaint: Diarrhea Stated Complaint: POSSIBLE LOW BLOOD PRESSURE/BLOOD IN STOOL Time Seen by Provider: 06/11/20 20:48 Primary Care Provider: MARY SMITH DO [Primary Care Provider] - Follow up as needed TRAVEL OUTSIDE OF THE [place] IN LAST 30 DAYS: No - HPI Notes: Patient is a 59-year-old female presents emergency department for evaluation. She has had 4 episodes of bloody diarrhea in the last 4 hours. She feels dizzy and lightheaded. She has some lower back pain and right arm pain, neither of which is new. She also has some cramping abdominal pain before she moves her bowels. She states the blood is bright red, it is mixed with the stool and on the toilet paper. She is had no fevers or chills. No nausea or vomiting. She states she had bloody diarrhea in the past which required admission to the hospital and blood transfusions. No abnormal travel. She is not currently on any sort of anticoagulants. - Related Data Allergies/Adverse Reactions: No Known Allergies Allergy (Verified 03/19/19 15:38) Home Medications: List reviewed at bedside Past Medical History - General Information source: Patient - Social History Smoking Status: Never Smoker Family History: Reviewed & Not Pertinent - Past Medical History Cardiac Medical History: Reports: Hx Hypercholesterolemia, Hx Hypertension Renal/ Medical History: Denies: Hx Peritoneal Dialysis Malignancy Medical History: Reports: Hx Skin Cancer - Melanoma resected from right arm GI Medical History: Reports: Hx Gastroesophageal Reflux Disease Psychiatric Medical History: Reports: Hx Depression - anxiety Past Surgical History: Reports: Hx Oral Surgery - wisdom teeth, Hx Tonsillectomy Review of Systems - Review of Systems Constitutional: See HPI EENT: No symptoms reported Cardiovascular: No symptoms reported Respiratory: No symptoms reported Gastrointestinal: See HPI Musculoskeletal: See HPI Skin: No symptoms reported Neurological/Psychological: No symptoms reported Physical Exam - Vital signs Vitals: Resp BP Pulse Ox 11 L 83/52 L 98 06/11/20 20:41 06/11/20 20:41 06/11/20 20:41 - Notes Notes: This is a weak and frail appearing 59-year-old female, who appears her stated age, no acute distress. Vital signs reviewed, please refer to chart. Head is normocephalic, atraumatic. Pupils equal round, reactive to light. Conjunctive are pink. Neck is supple without meningismus. Heart is regular rate and rhythm. Lungs are clear to auscultation bilaterally. Abdomen is soft, mildly tender in the left lower quadrant without rebound or guarding, normoactive bowel sounds throughout. Extremities without cyanosis, clubbing. Posterior calves are nontender. Peripheral pulses are equal. Skin is warm and dry. Patient is drowsy but awake, oriented x3,, neurological exam is nonfocal. Course - Re-evaluation Re-evalutation: 06/11/20 21:01 Patient presents emergency department for evaluation of bloody diarrhea. She is hypotensive on arrival. IV fluids are ordered. Laboratory investigations including type and screen are started. Patient does have some abdominal ten derness so CT scan of the abdomen pelvis has been ordered. She is currently stable, blood pressure is beginning to respond to fluid resuscitation. We will continue to monitor. 06/12/20 01:31 Patient had an initial creatinine that was significantly increased over prior studies. It had doubled in the last week. She was given fluid resuscitation, her blood pressures normalized. Her creatinine was repeated and only marginally improved. I still suspect this is all secondary to colitis and some temporary hypotension. Her hypotension is resolved. Her colitis could be infectious versus inflammatory, but with only 6 hours of symptoms, I am not inclined to treat with antibiotics at this time. Supportive care is recommended. Patient has also been tested for Covid. She is to remain a PUI at home. I told her that her renal function has not completely improved, and this would need to be rechecked by her primary care provider next week. She voiced understanding. She is to return to the emergency department with worsening or new concerning symptoms of any sort. - Vital Signs Vital signs: Temp Pulse Resp BP Pulse Ox 97.5 F 10 L 120/90 H 100 06/11/20 20:42 06/12/20 01:02 06/12/20 01:02 06/12/20 01:02 - Laboratory Results Result Diagrams: 06/11/20 20:36 06/12/20 00:31 Laboratory Results Interpreted: 06/11/20 06/11/20 12 20:36 20:36 00:31 WBC 17.6 H RBC 3.61 L Hgb 11.3 L Hct 34.0 L Absolute Neuts (auto) 9.1 H Absolute Lymphs (auto) 7.3 H Sodium 134.4 L Chloride 96 L BUN 28 H 28 H Creatinine 1.82 H 1.68 H Est GFR ( Amer) 34 L 38 L Est GFR (MDRD) Non-Af 28 L 31 L Critical Laboratory Results Reviewed: No Critical Results - Radiology Results Critical Radiology Results Reviewed: No Critical Results Discharge - Discharge Clinical Impression: Colitis, Acute kidney injury Diarrhea Qualifiers: Diarrhea type: presumed infectious Qualified Code(s): R19.7 - Diarrhea, unspecified Condition: Stable Disposition: HOME, SELF-CARE Instructions: COVID-19 Guidance for Persons Under Investigation, Diarrhea, Nonspecific ([facility]), Kidney Function Abnormality ([facility]) Additional Instructions: You have been tested for COVID-19. Please quarantine at home until you receive your results. Your blood pressure has improved here, but I would hold your blood pressure medication at home tomorrow. Your kidney function was slightly abnormal, this was likely secondary to some mild dehydration. It is very important that you have this rechecked, please follow-up with your primary care provider no later than the beginning of next week. Return to the emergency department with worsening or new concerning symptoms of any sort. Referrals: MARY SMITH, [Primary Care Provider] - Follow up as needed
[2020-06-11 21:15] LABS: INTERNATIONAL RATION (INR) 0.88; PROTHROMBIN TIME 12.2 SEC (11.4-15.4)
[2020-06-11 21:17] LABS: PARTIAL THROMBOPLASTIN TIME 23.7 SEC (23.5-35.8)
[2020-06-11 21:18] LABS: ABSOLUTE BASOPHILS # (AUTO) 0.1 10^3/uL (0.0-0.2); ABSOLUTE EOSINOPHILS # (AUTO) 0.1 10^3/uL (0.0-0.6); ABSOLUTE LYMPHOCYTES (AUTO) 7.3 10^3/uL (0.5-4.7); ABSOLUTE MONOCYTES (AUTO) 1.2 10^3/uL (0.1-1.4); ABSOLUTE NEUT (AUTO) 9.1 10^3/uL (1.7-8.2); BASOPHILS % (AUTO) 0.4 % (0-2); EOSINOPHILS % (AUTO) 0.3 % (0-6); HEMOGLOBIN 11.3 g/dL (12.0-15.5); LYMPHOCYTES % (AUTO) 41.1 % (13-45); MEAN CORPUSCULAR HEMOGLOBIN 31.4 pg (27.0-33.4); MEAN CORPUSCULAR HGB CONC 33.4 g/dL (32.0-36.0); MEAN CORPUSCULAR VOLUME 94 fl (80-97); MONOCYTES % (AUTO) 6.6 % (3-13); PLATELET COUNT 355 10^3/uL (150-450); RED BLOOD COUNT 3.61 10^6/uL (3.72-5.28); RED CELL DISTRIBUTION WIDTH 13.8 % (11.5-14.0); SEGMENTED NEUTROPHILS % (AUTO) 51.6 % (42-78); TOTAL CELLS COUNTED % (AUTO) 100 %; WHITE BLOOD COUNT 17.6 10^3/uL (4.0-10.5)
[2020-06-11 21:40] LABS: ALBUMIN 3.9 g/dL (3.5-5.0); ALKALINE PHOSPHATASE 64 U/L (38-126); ANION GAP 8 (5-19); ASPARTATE AMINO TRANSFERASE 26 U/L (14-36); BILIRUBIN,DIRECT 0.2 mg/dL (0.0-0.4); BILIRUBIN,TOTAL 0.4 mg/dL (0.2-1.3); BLOOD UREA NITROGEN 28 mg/dL (7-20); CALCIUM 9.8 mg/dL (8.4-10.2); CARBON DIOXIDE 30 mmol/L (22-30); CHLORIDE 96 mmol/L (98-107); GLUCOSE 90 mg/dL (75-110); POTASSIUM 3.6 mmol/L (3.6-5.0); TOTAL PROTEIN 6.6 g/dL (6.3-8.2)
--- NOTE | 2020-06-11 23:05 | RADIOLOGY REPORT (SQ) ---
EXAM DESCRIPTION: CT ABDOMEN PELVIS WITH IV CONTRAST COMPLETED DATE/TME: 06/11/2020 22:29 CLINICAL HISTORY: 59 years, Female, GI bleeding COMPARISON: None. TECHNIQUE: 814 Images stored on PACS. All CT scanners at this facility use dose modulation, iterative reconstruction, and/or weight based dosing when appropriate to reduce radiation dose to as low as reasonably achievable (ALARA). [facility]: Dose Right [facility]: CareDose [facility]: Dose Right [facility]: Teradose 4D [facility]: [employer] LIMITATIONS: None. FINDINGS: Visualized lung bases are unremarkable. Osseous structures are grossly intact. Fatty infiltrative change to the liver. The spleen, adrenal glands, pancreas, kidneys are unremarkable. The gallbladder is present, contracted. No gross evidence for bowel obstruction. Normal appendix. Liquefied stool in the colon with diffuse mild colonic wall thickening consistent with nonspecific colitis. No free air or free fluid. IMPRESSION: Nonspecific colitis. Fatty infiltrative change to the liver TECHNICAL DOCUMENTATION: Quality ID # [id number]: Final reports with documentation of one or more dose reduction techniques (e.g., Automated exposure control, adjustment of the mA and/or kV according to patient size, use of iterative reconstruction technique) copyright 2011 [employer]- All Rights Reserved
[2020-06-11 23:19] LABS: APPEARANCE,URINE SLIGHTLY-CLOUDY; BILIRUBIN,URINE NEGATIVE (NEGATIVE); COLOR,URINE YELLOW; GLUCOSE, URINE NEGATIVE (NEGATIVE); KETONES,URINE NEGATIVE (NEGATIVE); LEUKOCYTE ESTERASE,URINE NEGATIVE (NEGATIVE); NITRITE,URINE NEGATIVE (NEGATIVE); PROTEIN,URINE NEGATIVE (NEGATIVE); URINE SPECIFIC GRAVITY 1.021; UROBILINOGEN,URINE NEGATIVE mg/dL (<2.0)
[2020-06-12 01:12] LABS: ANION GAP 7 (5-19); BLOOD UREA NITROGEN 28 mg/dL (7-20); CALCIUM 9.2 mg/dL (8.4-10.2); CARBON DIOXIDE 30 mmol/L (22-30); CHLORIDE 103 mmol/L (98-107); GLUCOSE 94 mg/dL (75-110); POTASSIUM 3.7 mmol/L (3.6-5.0)
[2020-06-12 02:14] VITALS: BP 132/93
== END 2020-06-12 02:15 | disposition home or self-care (01) ==
LOC: ER 20:26
DX: N17.9 Acute kidney failure, unspecified (principal); K52.9 Noninfective gastroenteritis and colitis, unspecified; R19.5 Other fecal abnormalities; R42 Dizziness and giddiness; M54.5 Low back pain; M79.601 Pain in right arm; R10.9 Unspecified abdominal pain; I95.9 Hypotension, unspecified; Z85.820 Personal history of malignant melanoma of skin; I10 Essential (primary) hypertension; Z20.828 Contact with and (suspected) exposure to other viral communicable diseases
CPT/HCPCS: 99285; 96360; 96361; 86900; 86901; 36415; 87040; 86850; 83605; 85025; 85610; 85730; 87635; 87077; 80048; 80053; 81001; 87186; 87150 ×26; 74177; J7030; C9803